=== PATIENT | female | born 1940 | race Caucasian/White ===

== ENCOUNTER 2016-12-27 06:13 | Day surgery (SDC) | payer MEDICARE, OTHER ==
[2016-12-23 11:11] LABS: BASOPHILS 0.7 %; BASOPHILS ABSOLUTE 0.03 10/3/uL (0.0-0.16); EOSINOPHILS 2.7 %; EOSINOPHILS ABSOLUTE 0.11 10/3/uL (0.0-0.53); LYMPHOCYTES 23.5 %; LYMPHOCYTES ABSOLUTE 0.97 10/3/uL (0.67-4.30); MEAN PLATELET VOLUME 9.4 fL (9.2-13.0); MONOCYTES ABSOLUTE 0.37 10/3/uL (0.21-1.20); NEUTROPHILS 64.1 %; NEUTROPHILS ABSOLUTE 2.65 10/3/uL (2.02-8.40); RBC DISTRIBUTION WIDTH 14.1 % (12.0-16.0); RED CELL COUNT 3.08 10/6/uL (4.0-5.6); WHITE BLOOD CELLS 4.1 10/3/uL (4.5-10.5)
[2016-12-23 11:15] LABS: HEMATOCRIT 32.5 % (36.0-48.0); HEMOGLOBIN 10.8 g/dL (12.0-16.0); MANUAL DIFF NO %; MEAN CORPUS HGB CONC 33.2 g/dL (32.0-36.0); MEAN CORPUSCULAR HEMOGLOB 35.1 pg (26.0-34.0); MEAN CORPUSCULAR VOLUME 105.5 fL (80-100); PLATELET COUNT 170 10/3/uL (150-400)
[2016-12-23 11:43] LABS: A/G RATIO 1.6 (0.7-1.9); ALBUMIN 3.6 G/DL (3.5-5.0); ALKALINE PHOSPHATASE 76 U/L (45-117); BUN (BLOOD UREA NITROGEN) 10 MG/DL (6-23); CALCIUM, SERUM 9.4 MG/DL (8.5-10.4); CHLORIDE, SERUM 108 MMOL/L (96-112); CO2 (CARBON DIOXIDE) 27 MMOL/L (24-34); CREATININE 0.46 MG/DL (0.55-1.02); GFR AFRICAN AMERICAN 112 ML/MIN (>=60); GFR NON AFRICAN AMERICAN 97 ML/MIN (>=60); GLOBULIN 2.3 G/DL (2.5-4.1); GLUCOSE, SERUM 97 MG/DL (60-99); POTASSIUM, SERUM 3.6 MMOL/L (3.5-5.3); SGOT(AST) 25 U/L (5-40); SGPT(ALT) 20 U/L (5-65); SODIUM, SERUM 146 MMOL/L (135-148); TOTAL BILIRUBIN 0.4 MG/DL (0-1.2); TOTAL PROTEIN 5.9 G/DL (6.0-8.5)
--- NOTE | ~2016-12-27 | OP ---
Record Of Operation [facility] [address] [place]. [address] NAME: FRANCI PHILLIPS : 40 STATUS : [facility] PAT#: [id number] AGE: 76 ADM/REG DATE : 12/27/16 MR#: [id number] REPORT SERV DATE: 12/27/16 DICTATED BY: KATERINE PATRICK DATE: 12/27/16 REPORT STATUS : Draft TRANSCRIBED BY: MODL DATE: 12/27/16 DATE OF PROCEDURE: 12/27/2016 PREOPERATIVE DIAGNOSES: Left breast cancer, locally advanced, status post neoadjuvant chemotherapy. POSTOPERATIVE DIAGNOSIS: Left breast cancer, locally advanced, status post neoadjuvant chemotherapy. PROCEDURE: 1. Left breast segmentectomy. 2. Left lower axillary dissection. INDICATION FOR THE PROCEDURE: Ms Phillips is a 76-year-old healthy female, with a history of right breast cancer treated with segmentectomy and radiation years ago. The patient more recently was noted to have a palpable mass in the left axilla. This mass is actually in the inferior axilla and not in the axillary tail. Biopsy was performed showing in fact a primary breast cancer and also localized lymphadenopathy was biopsied showing malignant cells in the lymph node. She received neoadjuvant chemotherapy for this locally advanced breast cancer. Unfortunately, had poor response in the breast tissue itself. She has had what looks to be a good response in the lymph nodes. Prior to chemotherapy there were two lymph nodes obvious, neither of these are seen on ultrasound now. The mass in the breast appears to be fairly unchanged from the chemotherapy. The patient is strongly motivated for breast preservation. She is a good candidate and will receive whole breast radiation. An axillary radiation postoperatively. A sentinel node biopsy is planned. Lymphoscintigraphy scan was performed yesterday and showed poor uptake in the left axilla. This is not unusual post chemotherapy with positive nodes. OPERATIVE FINDINGS: After appropriate consent was on the chart, the patient taken to the operating room in supine position. She was placed under general anesthesia without any complications. The ultrasound was utilized to again visualize the tumor in the left lower axilla. Gamma probe was placed into the left axilla and no uptake was noted. The patient does have uptake over the tumor itself. The patient's left chest wall and axilla were prepped and draped in sterile fashion. An incision was made over the tumor site, sharp dissection carried down to the level of breast parenchyma and flaps were created in all directions around the tumor. The tumor was excised down to the muscle. There was no additional superficial or deep tissue to be taken. It was marked with sutures and sent for immediate evaluation by pathology. Pathology noted that the tumor appears to be directly in the center of the specimen. It was closest to the anterior and deep margins which would be expected. Again, this is muscle and skin. The axillary dissection was performed next. The axillary vein was seen coursing in its normal anatomic position, superiorly in the wound, there were no palpable lymph nodes. The patient had a very scant amount of axillary fat once the tumor had been removed. All of this fat was cleared from the surrounding thoracodorsal bundle and long thoracic nerve and was sent for permanent pathology. The wound was copiously irrigated with warm saline. A size 10 drain was placed and secured to the skin with a nylon suture. The local wound was localized and closed in two layers of Record Of Operation [address] [address] NAME: FRANCI PHILLIPS : 40 STATUS : [facility] PAT#: [id number] AGE: 76 ADM/REG DATE : 12/27/16 MR#: [id number] REPORT SERV DATE: 12/27/16 DICTATED BY: KATERINE PATRICK. DATE: 12/27/16 REPORT STATUS : Draft TRANSCRIBED BY: SHANICE DATE: 12/27/16 Monocryl. The patient was awoken from anesthesia without complication, taken to PACU in stable condition for recovery. All counts were correct at the end of the case. ESTIMATED BLOOD LOSS: 35 mL. COMPLICATIONS: None. SPECIMEN: Left breast lower axillary/axillary tail segment and lower axillary content. BW/SHANICE Katerine Patrikc MD / [id number] CC: MD Etienne Smith M.D. [facility] Cheryl Gonsales M.D.
[~2016-12-27 06:13] MED LIST: ACET500CAP PO; ADVIL PO; ATV.5 PO; DIOVAN HC2 PO; FLUCON2 PO; KLOR-CON M2020 MEQ PO; LOP25 PO; MD ANDERSON MOUTHWAS; NORCO1 TA1 PO; PR25 PO; PRAV10 PO; T PO; ZOFRAN8 PO
== END 2016-12-27 12:14 | disposition home or self-care (01) ==
LOC: SDC 06:13
PROVIDERS: Surgery Surgical Oncology
PROC: 07B60ZX Excision of Left Axillary Lymphatic, Open Approach, Diagnostic (ICD-10-PCS; 2016-12-27)
PROC: 0HBU0ZX Excision of Left Breast, Open Approach, Diagnostic (ICD-10-PCS; principal; 2016-12-27 07:45)
DX: C77.3 Secondary and unspecified malignant neoplasm of axilla and upper limb lymph nodes (principal); C50.912 Malignant neoplasm of unspecified site of left female breast; I10 Essential (primary) hypertension; Z88.2 Allergy status to sulfonamides; Z88.0 Allergy status to penicillin; Z79.1 Long term (current) use of non-steroidal anti-inflammatories (NSAID); Z79.899 Other long term (current) drug therapy; Z98.41 Cataract extraction status, right eye; Z98.42 Cataract extraction status, left eye; Z98.890 Other specified postprocedural states
CPT/HCPCS: 78195; 80053; 85025; 88307; 88341; 88342; 93005; A9270-GY; A9541; J0690; J2405; J3010